=== PATIENT | female | born 1965 | race Caucasian/White ===

== ENCOUNTER → 2017-07-07 | Emergency (ER) | payer OTHER ==
[~2017-07-07] VITALS: Ht 162.6 cm; Wt 72.6 kg
[~2017-07-07] MED LIST: ACIDOPHILUS1 EAC1; ADVAIR 100-501 EACH; NOND
== END | disposition home or self-care (01) ==
LOC: ER 14:08
DX: K52.9 Noninfective gastroenteritis and colitis, unspecified (principal)

== ENCOUNTER 2018-11-27 08:30 | Inpatient (IN) | payer OTHER ==
[~2018-11-27] VITALS: Ht 162.6 cm; Wt 77.1 kg
[2018-11-27] MEDS ORDERED: PROVENTIL HFA6.7 GM IH (09:41)
== END 2018-12-02 12:51 | disposition home or self-care (01) | DRG 743 ==
LOC: OB/GYN 11-29 07:00 → O/R 11-29 09:40 → OB/GYN 11-29 09:40
PROVIDERS: ADMIT Obstetrics & Gynecology
PROC: 0UT50ZZ Resection of Right Fallopian Tube, Open Approach (ICD-10-PCS; 2018-11-29)
PROC: 0UT90ZZ Resection of Uterus, Open Approach (ICD-10-PCS; principal; 2018-11-29 07:00)
DX: D25.1 Intramural leiomyoma of uterus (principal); N80.0 Endometriosis of uterus; Z88.0 Allergy status to penicillin; Z90.79 Acquired absence of other genital organ(s)